=== PATIENT | female | born 1965 | race Caucasian/White ===

== ENCOUNTER 2020-07-28 08:45 | Emergency (ER) | payer MEDICARE, MEDICAID, SELFPAY ==
[2020-07-28 09:09] VITALS: PULSE 78; RESP 16; TEMP 37; O2SAT 98
--- NOTE | 2020-07-28 09:18 | ED.GENADULT ---
HPI - General Adult General Chief complaint: Unspecified Stated complaint: pain and swelling in hands Source: patient Mode of arrival: ambulatory Limitations: no limitations History of Present Illness HPI narrative: This is a 54-year-old female with a history of gout presents bilateral hand swelling with decreased range of motion secondary to swelling warm and tender to touch has a history of gout depression and chronic pain that she takes oxycodone, and history of hyperlipidemia. Pain and swelling started about 2 to 3 days ago and has been constant since with warm and tender wrists and hands swelling. Currently is on allopurinol 100 mg and, the patient believes that this dose is not helping her anymore. There is no fever chills no chest pain no shortness of breath no abdominal pain. Onset (ago): day(s) Location: upper extremity Radiation: non-radiation Severity: moderate Severity scale (1-10): 8 Quality: aching Pain Consistency: constant Relieving factors: none Exacerbating factors: none Treatments prior to arrival: other Related Data Home Medications Medication Instructions Recorded Confirmed allopurinol 100 mg PO DAILY 07/28/20 07/28/20 duloxetine 30 mg PO DAILY 07/28/20 07/28/20 ergocalciferol (vitamin D2) 50 mcg PO DAILY 07/28/20 07/28/20 meloxicam 15 mg PO DAILY 07/28/20 07/28/20 oxycodone 7.5 mg PO Q8H PRN 07/28/20 07/28/20 pravastatin 40 mg PO DAILY 07/28/20 07/28/20 Allergies Allergy/AdvReac Type Severity Reaction Status Date / Time No Known Allergies Allergy Verified 07/28/20 09:00 Review of Systems Review of Systems: All systems reviewed & are unremarkable except as noted in HPI and below PMFSH Past Medical History Medical History Depression Gout HLD (hyperlipidemia) Social History Social History Gender identity (if verbalized by the patient): Female Exam Const: General: cooperative, healthy appearing, comfortable, no acute distress, well developed, alert, awake and Physically active Eyes: General: appearance normal, both eyes and all related structures EOM: EOMs intact bilaterally Neck: Neck: normal visual inspection Chest: Chest palpation & inspection: normal inspection of the chest and normal palpation of entire chest wall Resp: Effort & Inspection: normal respiratory effort and able to speak in complete sentences Auscultation: clear to auscultation bilaterally Cardio: Jugular venous distension: no JVD Palpation: normal PMI Rate: regular rate Rhythm: regular rhythm Heart sounds: S1 normal heart sound present and S2 normal heart sound present GI: Inspection: normal to inspection Back/Spine/Pelvis: Back: no CVA tenderness Skin: Other: bilateral hands and wrist swelling with some warm and tender with some strong brisk radial pulse bilaterally with some some numbness secondary to swelling. Neuro: General: oriented to person, oriented to place, oriented to time and patient oriented x3 Extrem: General: normal to inspection, full ROM and capillary refill normal Hand/finger images: 1. Swelling with warmth and tenderness 2. swelling with warm and tenderness Psych: Appearance: grossly normal and well kempt Course Course Emergency Course: patient received IM Depo-Medrol and discharged with some oral steroids with recommendation to follow with her primary care physician. And also advised increase her allopurinol [id number] daily. Vital Signs Vital signs: Vital Signs Temperature 37.0 C 07/28/20 09:09 Pulse Rate 78 07/28/20 09:09 Respiratory Rate 16 07/28/20 09:09 Pulse Oximetry 98 07/28/20 09:09 Temperature 37.0 C 07/28/20 09:09 Pulse Rate 78 07/28/20 09:09 Respiratory Rate 16 07/28/20 09:09 Pulse Oximetry 98 07/28/20 09:09 Medical Decision Making Vital Signs Vital Signs: Vital Signs Temperature 37.0 C 07/28/20 09:09
[2020-07-28] MEDS: methylPREDNISolone ACETATE 40 MG/ML VIAL 80 MG IM (09:28)
[2020-07-28 09:29] VITALS: PULSE 70; RESP 16; TEMP 36.6; O2SAT 98
== END 2020-07-28 09:32 | disposition home or self-care (01) ==
PROVIDERS: Emergency Provider Emergency Medicine
DX: M10.9 Gout, unspecified (principal); E78.5 Hyperlipidemia, unspecified
CPT/HCPCS: 96372; 99283; J1030